=== PATIENT | male | born 1950 | race Caucasian/White ===

== ENCOUNTER 2017-08-14 07:21 | Day surgery (SDC) | END 2017-08-14 19:30 | disposition home or self-care (01) ==

== ENCOUNTER 2017-11-24 07:48 | Inpatient (IN) | END 2017-11-27 12:40 | disposition home or self-care (01) | DRG 871 ==

== ENCOUNTER 2018-07-08 11:34 | Observation (INO) | payer MEDICARE, OTHER ==
[~2018-07-08] VITALS: Ht 190.5 cm; Wt 105.4 kg
[~2018-07-08 11:34] MED LIST: ADV25050 INHALATION; ALLO100T PO; ASPI81TA52 PO; CARV12.579 PO; CLOP75TA27 PO; CRES5 PO; DIGO125T93 PO; ESOM40CA PO; EXEN2PEN SQ; INSU200I4 SQ; IVAB7.5T PO; LEVO500T48 PO; METF850T13 PO; NOVO3I SC; OMEG1CAP2 PO; PARO25TA13 PO; REPA2TAB8 PO; SACU1TAB PO; SPIR25TA PO
--- NOTE | 2018-07-08 15:15 | ERD ---
ER Documentation Chief Complaint Chief Complaint SOB with cough and congestion x 3 days HPI The patient is a 68-year-old male, presenting to the ER because of cough, congestion, dyspnea for the last 3 days with mild bilateral leg swelling. Denies fever, chills, neck pain, chest pain, abdominal pain, vomiting, dizzy, diarrhea. He smokes, denies drinking Past medical history: CAD, COPD, CHF, hypertension, cardiomyopathy, diabetes mellitus Past surgical history: Pacemaker, left carotid endarterectomy, pacemaker ROS All systems reviewed and are negative except as per history of present illness. Medications Home Meds Reported Medications Fluticasone Propionate* (Fluticasone Propionate* Nasal) 50 Mcg/[place] - 16 Gm [place].susp, 1 SPRAY NASAL DAILY, #1 BOTTLE TO EACH NOSTRIL 07/08/18 Furosemide* (Furosemide*) 40 Mg Tablet, 40 MG PO DAILY, TAB 07/08/18 Lorazepam* (Lorazepam*) 0.5 Mg Tablet, 0.5 MG PO BID PRN for ANXIETY, TAB 07/08/18 Insulin Detemir (Levemir) 100 Unit/1 Ml Vial, 0 SQ WITH MEALS INJECT 8-12 UNITS 07/08/18 Spironolactone* (Aldactone*) 25 Mg Tablet, 12.5 MG PO DAILY, #30 TAB 07/08/18 Sacubitril/Valsartan (Entresto 24 mg-26 mg Tablet) 1 Each Tablet, 1 EACH PO DAILY, TAB 07/08/18 Rosuvastatin Calcium* (Crestor*) 5 Mg Tablet, 5 MG PO QHS, #30 TAB 07/08/18 Repaglinide* (Repaglinide*) 2 Mg Tablet, 4 MG PO AC MEALS, TAB 07/08/18 Paroxetine Hcl* (Paxil* CR) 25 Mg Tab.sr.24h, 25 MG PO QHS, TAB 07/08/18 [place]-3 Acid Ethyl Esters (Lovaza) 1 Gm Capsule, 2 GM PO BID, CAP 07/08/18 Insulin Degludec (Tresiba Flextouch U-200) 200 Unit/1 Ml Insuln.pen, 26 UNIT SQ QHS 07/08/18 Esomeprazole Mag Trihydrate (Nexium) 40 Mg Capsule.dr, 40 MG PO QAM, #30 CAP 07/08/18 Digoxin* (Lanoxin*) 0.125 Mg Tablet, 0.125 MG PO QHS, TAB 07/08/18 Clopidogrel Bisulfate* (Clopidogrel Bisulfate*) 75 Mg Tablet, 75 MG PO DAILY, #30 TAB 07/08/18 Carvedilol* (Carvedilol*) 12.5 Mg Tablet, 12.5 MG PO BID, #60 TAB 07/08/18 Allopurinol* (Allopurinol*) 100 Mg Tablet, 100 MG PO DAILY, TAB 07/08/18 Discontinued Reported Medications Salmeterol Xinaf/Fluticasone* (Advair*) 250-50 Diskus Inhaler, 1 INH INHALATION BID, #1 INHALER 08/14/17 Esomeprazole Mag Trihydrate (Nexium) 40 Mg Capsule.dr, 40 MG PO DAILY, #30 CAP 08/14/17 Rosuvastatin Calcium* (Crestor*) 5 Mg Tablet, 5 MG PO QHS, #30 TAB 08/14/17 Ivabradine HCl (Corlanor) 7.5 Mg Tablet, 7.5 MG PO BID, #60 TAB 08/14/17 Paroxetine Hcl* (Paxil* CR) 25 Mg Tab.sr.24h, 25 MG PO DAILY, TAB 08/14/17 Carvedilol* (Carvedilol*) 12.5 Mg Tablet, 12.5 MG PO BID, #60 TAB 08/14/17 Spironolactone* (Aldactone*) 25 Mg Tablet, 25 MG PO DAILY, #30 TAB 08/14/17 Allopurinol* (Allopurinol*) 100 Mg Tablet, 100 MG PO DAILY, TAB 08/14/17 Sacubitril/Valsartan (Entresto 24 mg-26 mg Tablet) 1 Each Tablet, 1 EACH PO BID, TAB 08/14/17 Repaglinide* (Repaglinide*) 2 Mg Tablet, 4 MG PO AC MEALS, TAB THREE TIMES DAILY 08/14/17 Digoxin* (Lanoxin*) 0.125 Mg Tablet, 0.125 MG PO QHS, TAB 08/14/17 Metformin Hcl* (Metformin Hcl*) 850 Mg Tablet, 850 MG PO WITH MEALS, #30 TAB THREE TIMES A DAY 08/14/17 [place]-3 Acid Ethyl Esters (Lovaza) 1 Gm Capsule, 2 GM PO BID, CAP 08/14/17 Clopidogrel Bisulfate (Clopidogrel) 75 Mg Tablet, 75 MG PO DAILY, #30 TAB 08/14/17 Aspirin (Low Dose Aspirin) 81 Mg Tablet.dr, 81 MG PO DAILY, #30 TAB 08/14/17 Exenatide Microspheres (Bydureon Pen) 2 Mg/0.65 Ml Pen.injctr, 2 MG SQ Q7D, EACH Mondays08/14/17 Insulin Aspart* (Novolog Insulin Pen*) 100 Unit/Ml Soln, 12 UNIT SC AC MEALS, EA 08/14/17 Insulin Degludec (Tresiba Flextouch U-200) 200 Unit/1 Ml Insuln.pen, 24 UNIT SQ QHS 08/14/17 Discontinued Scripts Levofloxacin* (Levaquin*) 500 Mg Tablet, 500 MG PO DAILY for 5 Days, TAB Prov:SARINA LONG MD 11/27/17 Allergies Allergies: Coded Allergies: No Known Allergy (Unverified , 07/08/18) PMhx/Soc History of Surgery: Yes (CAROTID OCCLUSION, PACEMAKER) Anesthesia Reaction: No Hx Neurological Disorder: No Hx Respiratory Disorders: Yes (COPD) Hx Cardiac Disorders: Yes (CHF, HTN, CAROTID OCCLUSION) Hx Psychiatric Problems: No Hx Miscellaneous Medical Probl: Yes (CAD, HTN , DM , S/P CAROTID ENDA RTERECTOMY) Hx Alcohol Use: No Hx Substance Use: No Hx Tobacco Use: No Physical Exam Vitals Vital Signs Date Temp Pulse Resp B/P (MAP) Pulse Ox O2 O2 Flow FiO2 Time Delivery Rate 07/08/18 79 20 135/66 98 Nasal 2.0 17:00 (89) Cannula 07/08/18 99 26 96 21 15:56 07/08/18 Nasal 2 15:30 Cannula 07/08/18 Nasal 2.0 15:10 Cannula 07/08/18 99.0 81 20 126/61 95 12:11 (82) Physical Exam Const: No acute distress. Head: Atraumatic. Eyes: Normal Conjunctiva. ENT: Normal External Ears, Nose and Mouth. BL tympanic membrane and oropharynx are within normal limit, no facial tenderness Neck: Full range of motion. No meningismus. Resp: Bibasilar crackle. Cardio: Regular rate and rhythm. Abd: Soft, non distended, normal bowel sounds, non tender. Skin: No petechiae or rashes. Back: No midline or flank tenderness. Ext: No cyanosis, or edema. Neur: Awake and alert. No focal deficit Psych: Normal Mood and Affect. Result Diagram: 07/09/18 0708 07/09/18 0708 Results 24 hrs Laboratory Tests Test 07/08/18 15:15 07/08/18 15:22 07/08/18 15:35 White Blood Count 5.5 10^3/ul Red Blood Count 5.28 10^6/ul Hemoglobin 15.0 g/dl Hematocrit 45.1 % Mean Corpuscular Volume 85.4 fl Mean Corpuscular Hemoglobin 28.4 pg Mean Corpuscular 33.3 g/dl Hemoglobin Concent Red Cell Distribution Width 12.5 % Platelet Count 258 10^3/UL Mean Platelet Volume 10.3 fl Immature Granulocytes % 0.900 % Neutrophils % % Segmented Neutrophils % (Manual) 44 % Band Neutrophils % (Manual) 5 % Lymphocytes % % Lymphocytes % (Manual) 30 % Reactive Lymphocytes % (Manual) 11 % Monocytes % % Monocytes % (Manual) 10 % Eosinophils % % Basophils % % Nucleated Red Blood Cells % 0.0 /100WBC Immature Granulocytes # 0.050 10^3/ul Neutrophils # 10^3/ul Neutrophils # (Manual) 2.4 10^3/ul Band Neutrophils # 0.2 10^3/ul Lymphocytes (Manual) 1.6 10^3/ul Lymphocytes # 10^3/ul Reactive Lymphocytes # 0.6 10^3/ul Monocytes # 10^3/ul Monocytes # (Manual) 0.5 10^3/ul Eosinophils # 10^3/ul Basophils # 10^3/ul Nucleated Red Blood Cells # 10^3/ul Platelet Estimate NORMAL Poikilocytosis 1+ Anisocytosis 3+ Microcytosis 3+ Sodium Level 139 mmol/L Potassium Level 5.2 mmol/L Chloride Level 101 mmol/L Carbon Dioxide Level 27 mmol/L Anion Gap 11 Blood Urea Nitrogen 25 mg/dl Creatinine 1.10 mg/dl Est Glomerular Filtrat Rate mL/min > 60 mL/min Glucose Level 170 mg/dl Calcium Level 9.9 mg/dl Total Bilirubin 0.6 mg/dl Direct Bilirubin 0.00 mg/dl Indirect Bilirubin 0.6 mg/dl Aspartate Amino Transf (AST/SGOT) 34 IU/L Alanine 16 IU/L Aminotransferase (ALT/SGPT) Alkaline Phosphatase 47 IU/L Troponin I 0.014 ng/ml B-Type Natriuretic Peptide 2020 PG/ML Total Protein 8.2 g/dl Albumin 4.5 g/dl Globulin 3.70 g/dl Albumin/Globulin Ratio 1.21 POC Venous Lactate 1.5 mmol/L Prothrombin Time 12.4 Sec Prothrombin Time Ratio 1.0 INR International Normalized Ratio 0.91 Activated Partial Thromboplast 30.4 Sec Time Lactic Acid Level 1.6 mmol/L Current Medications Medications Dose Sig/[place] Start Time Status Last (Trade) Ordered Route PRN Stop Time Admin Dose Reason Admin Furosemide 20 mg ONCE ONCE 07/08/18 DC 07/08/18 (Lasix) IV 18:30 19:00 07/08/18 18:36 Procedures/[place] [id number] Radiology Main Line: [phone] DIAGNOSTIC IMAGING REPORT Patient: OSCAR GALAN : 1950 Age: 68 Sex: M MR #: [id number] DOS: 07/08/18 1501 Ordering MD: DIANNA KEEN MD Location: E/R Room/Bed: PROCEDURE: XR Chest. CLINICAL INDICATION: SOB TECHNIQUE: Portable AP view of the chest was obtained. COMPARISON: CR CHEST 05/06/2014; CR CHEST 04/29/2013; CR CHEST 11/26/2012 FINDINGS: Minimal bibasilar partial atelectasis. No pulmonary consolidation or edema. No effusion or pneumothorax. Cardiac silhouette is stable with intact pacer / AICD wires. No acute osseous abnormality. Calcified atherosclerosis of the thoracic aorta. IMPRESSION: Minimal bibasilar partial atelectasis. Calcified atherosclerosis of the thoracic aorta. RPTAT:AAJJ Physician Mario Date Time Electronically viewed and signed by Physician Mario on 07/08/2018 16:09 RF/ CC: DIANNA KEEN MD [id number] EKG: Read by emergency physician Rate/Rhythm: Normal Sinus Rhythm 78 beats/min QRS, ST, T-waves: No ST elevation, inferior lateral ST and T abnormality Impression: Abnormal EKG MEDICAL MAKING DECISION: The patient is a 68-year-old male, presenting with acute mild CHF exacerbation, acute viral syndrome. He was treated with Lasix 20 mg IV for acute CHF exacerbation with good response. The differential diagnoses considered include but are not limited to viral syndrome, influenza, bronchitis, asthma, COPD, pneumonia, pulmonary embolus, pleural effusion, congestive heart failure. Departure Diagnosis: Primary Impression: CHF (congestive heart failure) Additional Impressions: Viral syndrome Anemia Leukopenia Condition: Stable Comments I discussed the findings with the patient. I discussed the patient with physician Dr. Zepeda at 6:50 PM who was made aware of the lab, the treatment, the patient condition. The patient is admitted to [facility] Disclaimer: Inadvertent spelling and grammatical errors are likely due to EHR/dictation software use and do not reflect on the overall quality of patient care. Also, please note that the electronic time recorded on this note does not necessarily reflect the actual time of the patient encounter. DIANNA KEEN MD Jul 08, 2018 15:15
[2018-07-08] MEDS ORDERED: FUROSEMIDE 20 MG INJ IV ONE (18:30)
[2018-07-08] MEDS ORDERED: ALLO100T PO (18:54)
[2018-07-08] MEDS ORDERED: CARV12.579 PO (18:54)
[2018-07-08] MEDS ORDERED: CLOP75TA19 PO (18:54)
[2018-07-08] MEDS ORDERED: DIGO125T93 PO (18:55)
[2018-07-08] MEDS ORDERED: ESOM40CA PO (18:56)
[2018-07-08] MEDS ORDERED: INSU200I4 SQ (18:56)
[2018-07-08] MEDS ORDERED: OMEG1CAP2 PO (18:57)
[2018-07-08] MEDS ORDERED: PARO25TA13 PO (18:59)
[2018-07-08] MEDS ORDERED: CRES5 PO (19:00)
[2018-07-08] MEDS ORDERED: REPA2TAB8 PO (19:00)
[2018-07-08] MEDS ORDERED: SACU1TAB PO (19:01)
[2018-07-08] MEDS ORDERED: SPIR25TA PO (19:02)
[2018-07-08] MEDS ORDERED: LEVEM SQ (19:06)
[2018-07-08] MEDS ORDERED: LORA0.5T PO (19:07)
[2018-07-08] MEDS ORDERED: FURO40TA4 PO (19:07)
[2018-07-08] MEDS ORDERED: FLUT16SP17 NASAL (19:08)
[2018-07-08] MEDS: ACCU-CHEK XX SCH (21:00)
[2018-07-08 22:35] VITALS: PULSE 88
[2018-07-08] MEDS: ATORVASTATIN 20 MG TAB PO SCH (23:40)
[2018-07-08] MEDS: FISH OIL 1,000 MG CAP PO SCH (23:43)
[2018-07-09] VITALS (11 sets, daily range): BP systolic 114–139; BP diastolic 55–63; PULSE 70–91; RESP 18–19; Ht 190.5 cm; Wt 105.4 kg
[2018-07-09] MEDS ORDERED: ZOLPIDEM 5 MG TAB PO PRN
[2018-07-09] MEDS: PANTOPRAZOLE (EC) 40 MG TAB PO SCH (06:09)
[2018-07-09] MEDS: ACCU-CHEK XX SCH (07:53)
[2018-07-09] MEDS: CLOPIDOGREL 75 MG TAB PO SCH (09:08)
[2018-07-09] MEDS: FISH OIL 1,000 MG CAP PO SCH ×2 (09:08→21:06)
[2018-07-09] MEDS: FUROSEMIDE 40 MG TAB PO SCH (09:09)
[2018-07-09] MEDS: ALLOPURINOL 100 MG TAB PO SCH (09:09)
--- NOTE | 2018-07-09 09:21 | HP ---
DATE OF ADMISSION: 07/08/2018 CHIEF COMPLAINT: Shortness of breath. HISTORY OF PRESENT ILLNESS: This is a 68-year-old male with a past medical history of coronary arter y disease, history of hypertension, diabetes, history of arrhythmia, history of GERD, history of dysl ipidemia, history of carotid endarterectomy, who presents to [facility] for shortne ss of breath. The patient states over the past several days he has had increased congestion, runny n ose, cough. As a result, the patient came into the emergency room for evaluation. Upon arrival, juliane jasso had laboratory data that showed a white count of 4.7. The patient had chest x-ray which showed findings of basilar atelectasis. In the emergency room, the patient was given IV diuretic therapy an d admitted to telemetry for evaluation. Upon my evaluation of the patient at this time, he is currently complaining of congestion. The patie nt overall feels ill. Denies any hemoptysis, hematemesis or hematochezia. PAST MEDICAL HISTORY: History of hypertension, dyslipidemia, diabetes, CHF, arrhythmia, history of c oronary artery disease, history of peripheral vascular disease. PAST SURGICAL HISTORY: Status post AICD placement, status post carotid endarterectomy. FAMILY HISTORY: No family history of kidney disease. SOCIAL HISTORY: Does not drink, smoke or do drugs. MEDICATIONS: The patient's medications have been reviewed. ALLERGIES: NO KNOWN DRUG ALLERGIES. REVIEW OF SYSTEMS: A 14-point review of systems was conducted and pertinent positives stated in HPI, otherwise negative. PHYSICAL EXAMINATION: VITAL SIGNS: Blood pressure is 130/60, respirations 16, pulse 92, temperature 98.6. HEENT: Head is normocephalic. Pupils are equal and reactive to light. NECK: Supple. HEART: Regular rate. LUNGS: Show diminished breath sounds at the base. ABDOMEN: Soft, nontender to palpation without rebound or guarding. EXTREMITIES: Negative for clubbing, cyanosis, no edema. DERMATOLOGIC: No rashes. MUSCULOSKELETAL: No joint effusion. NEUROLOGIC: No focal deficits. MEDICATIONS: The patient's medications have been reviewed. LABORATORY DATA: Shows sodium 140, potassium 4.2, BUN 25, creatinine 0.98, glucose 238, magnesium 1. 2. White count 4.7, hemoglobin 10.8, platelet count is 153. IMAGING STUDIES: Reviewed. ASSESSMENT AND PLAN: 1. Upper respiratory infection, possible acute bronchitis. Plan is to start the patient on antibiot ic therapy, azithromycin. We will place an ID consult for evaluation. 2. Acute hypoxemic respiratory failure, etiology is multifactorial secondary to bronchitis, possible congestive heart failure exacerbation. We will continue patient supplemental oxygen, continue diure tic therapy. Continue antibiotic therapy, monitor closely. 3. Acute on chronic systolic, diastolic heart failure. The patient appears decompensated on exam. Continue diuretic therapy. Followup with Cardiology. 4. History of coronary artery disease, status post PCI. Continue medical management. 5. Diabetes. The patient's glucose levels are elevated. We will resume diabetic regimen and monito r closely. 6. Hypertension. Continue current blood pressure regimen. 7. Dyslipidemia. Continue statin therapy. 8. History of ischemic cardiomyopathy, status post ICD placement. Continue to monitor. 9. History of carotid endarterectomy. Please note I spent over 30 minutes of face to face time with this patient, discussing code status an d advance directives. The patient is FULL CODE. Dictated By: ADAMARIS MONTES DE OCA/SHAI Conf#: [id number] DID#: [id number]
[2018-07-09] MEDS ORDERED: ALBUTEROL/IPRATROPIUM (NEB) 3 ML AMP HHN PRN (09:30)
[2018-07-09] MEDS ORDERED: GLUCAGON 1 MG INJ IM PRN (09:30)
[2018-07-09] MEDS ORDERED: GLUCOSE GEL 15 GRAM TUBE PO PRN ×2 (09:30)
[2018-07-09] MEDS ORDERED: MAGNESIUM SULFATE 2 GM/50 ML 50 ML IVPB SCH (09:30)
[2018-07-09] MEDS ORDERED: DEXTROSE 50% 50 ML SYRINGE IV PRN ×2 (09:30)
[2018-07-09] MEDS ORDERED: GLUCOSE GEL 15 GRAM TUBE BUCCAL PRN (09:30)
[2018-07-09] MEDS ORDERED: ENOXAPARIN 40 MG/0.4 ML SYG SC SCH (10:00)
[2018-07-09] MEDS ORDERED: AZITHROMYCIN 500MG/NS (PMX) 250 ML IVPB SCH (10:30)
[2018-07-09] MEDS ORDERED: MAGNESIUM SULFATE 4 GM/100 ML 100 ML IVPB ONE (10:30)
[2018-07-09] MEDS: FLUTICASONE 0.05% 16 GM NAS SPRAY NASAL SCH (10:39)
[2018-07-09] MEDS: INSULIN ASPART [NOVOLOG] 3 ML PEN SC SCH ×3 (12:00→21:23)
[2018-07-09] MEDS ORDERED: MAG SULFATE 2GM IN 50 ML IVPB ONE (12:00)
[2018-07-09] MEDS: INSULIN GLARGINE [LANTus] (100 UNITS/ML) SYG SC SCH (12:00)
--- NOTE | 2018-07-09 12:46 | CONS ---
Assessment/Plan Assessment/Plan Hospital Course (Demo Recall) 1. Dyspnea: Clinically does not appear to be in CHF exacerbation. Possibly COPD exacerbation versus viral syndrome versus others 2. Congestive heart failure: Chronic and stable second systolic heart failure 3. Coronary arteries with history of PCI 4. Diabetes 5. Dyslipidemia 6. Hypertension 7. COPD 8. Peripheral vascular disease status post carotid endarterectomy Recommendations Antibiotic management as needed will be deferred to internal medicine team Will resume patient home cardiac medications Electrolytes including: Magnesium will be replaced Monitor on telemetry for the time being Thank you for his referral 5 continue to follow along with you PEGGY TOTH MD [facility] Consultation Date/Type/Reason Admit Date/Time Jul 08, 2018 at 18:48 Date of Consultation: Jul 09, 2018 Type of Consult Cardiology Reason for Consultation R/O CHF Requesting Provider: ADAMARIS MEYER DO Date/Time of Note DATE: 07/09/18 TIME: 12:41 Hx of Present Illness Interventional cardiology consultation note Chief complaint: Shortness of breath flulike symptoms Reason for consult: Rule out CHF History of present illness: Thank you for this referral. History was from the patient is a good historian from extensive review of the old chart patient also very well-known to me from the past few years This is a pleasant 68-year-old gentleman multiple complicated medical history who has not been feeling well over the past couple of days. Patient started with a runny nose runny eyes. Started having shortness of breath and some cough with no fever or chills. Because of his multiple [facility] medical surgical floor he came to emergency room is been admitted for possible CHF as well as URI symptoms PAST MEDICAL HISTORY: History of hypertension, dyslipidemia, diabetes, CHF, arrhythmia, history of coronary artery disease post IA and PCI, history of peripheral vascular disease. History of severe ischemic cardiomyopathy ejection fraction of less than 30-35% status post ICD. COPD PAST SURGICAL HISTORY: Status post AICD placement, status post carotid endarterectomy. History of PCI FAMILY HISTORY: No family history of early coronary artery disease SOCIAL HISTORY: Has quit smoking a few years ago MEDICATIONS: The patient's medications have been reviewed. ALLERGIES: NO KNOWN DRUG ALLERGIES. Review of system: Patient denies all others except for above-mentioned Past Medical History Home Meds Reported Medications Fluticasone Propionate* (Fluticasone Propionate* Nasal) 50 Mcg/[place] - 16 Gm [place].susp, 1 SPRAY NASAL DAILY, #1 BOTTLE TO EACH NOSTRIL 07/08/18 Furosemide* (Furosemide*) 40 Mg Tablet, 40 MG PO DAILY, TAB 07/08/18 Lorazepam* (Lorazepam*) 0.5 Mg Tablet, 0.5 MG PO BID PRN for ANXIETY, TAB 07/08/18 Insulin Detemir (Levemir) 100 Unit/1 Ml Vial, 0 SQ WITH MEALS INJECT 8-12 UNITS 07/08/18 Spironolactone* (Aldactone*) 25 Mg Tablet, 12.5 MG PO DAILY, #30 TAB 07/08/18 Sacubitril/Valsartan (Entresto 24 mg-26 mg Tablet) 1 Each Tablet, 1 EACH PO DAILY, TAB 07/08/18 Rosuvastatin Calcium* (Crestor*) 5 Mg Tablet, 5 MG PO QHS, #30 TAB 07/08/18 Repaglinide* (Repaglinide*) 2 Mg Tablet, 4 MG PO AC MEALS, TAB 07/08/18 Paroxetine Hcl* (Paxil* CR) 25 Mg Tab.sr.24h, 25 MG PO QHS, TAB 07/08/18 [place]-3 Acid Ethyl Esters (Lovaza) 1 Gm Capsule, 2 GM PO BID, CAP 07/08/18 Insulin Degludec (Tresiba Flextouch U-200) 200 Unit/1 Ml Insuln.pen, 26 UNIT SQ QHS 07/08/18 Esomeprazole Mag Trihydrate (Nexium) 40 Mg Capsule.dr, 40 MG PO QAM, #30 CAP 07/08/18 Digoxin* (Lanoxin*) 0.125 Mg Tablet, 0.125 MG PO QHS, TAB 07/08/18 Clopidogrel Bisulfate* (Clopidogrel Bisulfate*) 75 Mg Tablet, 75 MG PO DAILY, #30 TAB 07/08/18 Carvedilol* (Carvedilol*) 12.5 Mg Tablet, 12.5 MG PO BID, #60 TAB 07/08/18 Allopurinol* (Allopurinol*) 100 Mg Tablet, 100 MG PO DAILY, TAB 07/08/18 Discontinued Reported Medications Salmeterol Xinaf/Fluticasone* (Advair*) 250-50 Diskus Inhaler, 1 INH INHALATION BID, #1 INHALER 08/14/17 Esomeprazole Mag Trihydrate (Nexium) 40 Mg Capsule.dr, 40 MG PO DAILY, #30 CAP 08/14/17 Rosuvastatin Calcium* (Crestor*) 5 Mg Tablet, 5 MG PO QHS, #30 TAB 08/14/17 Ivabradine HCl (Corlanor) 7.5 Mg Tablet, 7.5 MG PO BID, #60 TAB 08/14/17 Paroxetine Hcl* (Paxil* CR) 25 Mg Tab.sr.24h, 25 MG PO DAILY, TAB 08/14/17 Carvedilol* (Carvedilol*) 12.5 Mg Tablet, 12.5 MG PO BID, #60 TAB 08/14/17 Spironolactone* (Aldactone*) 25 Mg Tablet, 25 MG PO DAILY, #30 TAB 08/14/17 Allopurinol* (Allopurinol*) 100 Mg Tablet, 100 MG PO DAILY, TAB 08/14/17 Sacubitril/Valsartan (Entresto 24 mg-26 mg Tablet) 1 Each Tablet, 1 EACH PO BID, TAB 08/14/17 Repaglinide* (Repaglinide*) 2 Mg Tablet, 4 MG PO AC MEALS, TAB THREE TIMES DAILY 08/14/17 Digoxin* (Lanoxin*) 0.125 Mg Tablet, 0.125 MG PO QHS, TAB 08/14/17 Metformin Hcl* (Metformin Hcl*) 850 Mg Tablet, 850 MG PO WITH MEALS, #30 TAB THREE TIMES A DAY 08/14/17 [place]-3 Acid Ethyl Esters (Lovaza) 1 Gm Capsule, 2 GM PO BID, CAP 08/14/17 Clopidogrel Bisulfate (Clopidogrel) 75 Mg Tablet, 75 MG PO DAILY, #30 TAB 08/14/17 Aspirin (Low Dose Aspirin) 81 Mg Tablet.dr, 81 MG PO DAILY, #30 TAB 08/14/17 Exenatide Microspheres (Bydureon Pen) 2 Mg/0.65 Ml Pen.injctr, 2 MG SQ Q7D, EACH Mondays08/14/17 Insulin Aspart* (Novolog Insulin Pen*) 100 Unit/Ml Soln, 12 UNIT SC AC MEALS, EA 08/14/17 Insulin Degludec (Tresiba Flextouch U-200) 200 Unit/1 Ml Insuln.pen, 24 UNIT SQ QHS 08/14/17 Discontinued Scripts Levofloxacin* (Levaquin*) 500 Mg Tablet, 500 MG PO DAILY for 5 Days, TAB Prov:SARINA LONG MD 11/27/17 Medications Current Medications Allopurinol (Zyloprim) 100 mg DAILY PO Last administered on 07/09/18 09:09; Admin Dose 100 MG; Start 07/09/18 at 09:00 Carvedilol (Coreg) 12.5 mg BID PO Last administered on 07/09/18 09:09; Admin Dose 12.5 MG; Start 07/08/18 at 21:00 Clopidogrel Bisulfate (plaVIX) 75 mg DAILY PO Last administered on 07/09/18 09:08; Admin Dose 75 MG; Start 07/09/18 at 09:00 Digoxin (Digoxin) 0.125 mg DAILY@1300 PO Last administered on 07/09/18 12:38; Admin Dose 0.125 MG; Start 07/09/18 at 13:00 Fluticasone Propionate (Flonase 0.05% Nasal) 1 spray DAILY NASAL Last administered on 07/09/18 10:39; Admin Dose 1 SPRAY; Start 07/09/18 at 09:00 Furosemide (Lasix) 40 mg DAILY PO Last administered on 07/09/18 09:09; Admin Dose 40 MG; Start 07/09/18 at 09:00 Pantoprazole (Protonix Tab) 40 mg DAILY@06 PO Last administered on 07/09/18 06:09; Admin Dose 40 MG; Start 07/09/18 at 06:00 Fish Oil (Fish Oil) 1,000 mg BID PO Last administered on 07/09/18 09:08; Admin Dose 1,000 MG; Start 07/08/18 at 22:30 Atorvastatin Calcium (Lipitor) 20 mg DAILY@21 PO Last administered on 07/08/18 23:40; Admin Dose 20 MG; Start 07/08/18 at 21:00 Zolpidem Tartrate (Ambien) 5 mg HS PRN PO INSOMNIA Last administered on 07/09/18 00:13; Admin Dose 5 MG; Start 07/09/18 at 00:00 Azithromycin 250 ml @ 250 mls/hr Q24H IVPB Last administered on 07/09/18 10:38; Admin Dose 250 MLS/HR; Start 07/09/18 at 10:30 Insulin Aspart (Novolog Insulin Pen) NOVOLOG *MODERATE* ALGORITHM WITH MEALS BEDTIME SC Last administered on 07/09/18at 12:00; Admin Dose 8 UNIT; Start 07/09/18 at 11:50 Insulin Glargine (Lantus) 16 units DAILY@0800 SC Last administered on 07/09/18at 12:00; Admin Dose 16 UNITS; Start 07/09/18 at 10:30 Albuterol/ Ipratropium (Duoneb) 3 ml Q4H RESP THERAPY PRN HHN SHORTNESS OF BREATH; Start 07/09/18 at 09:30 Enoxaparin Sodium (Lovenox) 40 mg DAILY SC ; Start 07/09/18 at 10:00 Magnesium Sulfate 50 ml @ 25 mls/hr ONCE IVPB Last administered on 07/09/18at 10:39; Admin Dose 25 MLS/HR; Start 07/09/18 at 09:30; Stop 07/09/18 at 13:00 Miscellaneous Information 1 ea NOTE XX ; Start 07/09/18 at 09:30 Glucose (Glutose) 15 gm Q15M PRN PO DECREASED GLUCOSE; Start 07/09/18 at 09:30 Glucose (Glutose) 22.5 gm Q15M PRN PO DECREASED GLUCOSE; Start 07/09/18 at 09:30 Dextrose (D50w Syringe) 25 ml Q15M PRN IV DECREASED GLUCOSE; Start 07/09/18 at 09:30 Dextrose (D50w Syringe) 50 ml Q15M PRN IV DECREASED GLUCOSE; Start 07/09/18 at 09:30 Glucagon (Glucagen) 1 mg Q15M PRN IM DECREASED GLUCOSE; Start 07/09/18 at 09:30 Glucose (Glutose) 15 gm Q15M PRN BUCCAL DECREASED GLUCOSE; Start 07/09/18 at 09:30 Magnesium Sulfate 50 ml @ 25 mls/hr ONCE ONCE IVPB ; Start 07/09/18 at 12:00; Stop 07/09/18 at 13:59 Diagnostic Test (Pha) (Accu-Chek) 1 ea 02 XX ; Start 07/10/18 at 02:00 Nystatin (Nystatin Susp) 5 ml QID PO ; Start 07/09/18 at 13:00; Status UNV Chlorhexidine Gluconate (Peridex) 15 ml Q12 MT ; Start 07/09/18 at 21:00; Status UNV Fluconazole (Diflucan) 100 mg DAILY PO ; Start 07/09/18 at 13:00; Status UNV Allergies: Coded Allergies: No Known Allergy (Unverified , 07/08/18) Past Surgical History Past Surgical Hx: other Social History Smoking Status: Never smoker Exam/Review of Systems Vital Signs Vitals Vital Signs Date Temp Pulse Resp B/P (MAP) Pulse Ox O2 O2 Flow FiO2 Time Delivery Rate 07/09/18 80 12:08 07/09/18 98.5 18 125/56 94 11:33 (79) 07/09/18 Nasal 04:33 Cannula 07/09/18 2.0 00:00 07/08/18 21 15:56 Intake and Output 07/08/18 07/08/18 07/09/18 1515:00 23:00 07:00 IntakeIntake Total 500 ml BalanceBalance 500 ml Exam Exam General: no acute distress HEENT: NC/AT. pupils are equal. round. NECK: NO JVD. no stridor. CV: RRR. systolic murmur; no gallop or rubs. PULM: no wheezing or rhonchi. GI: SOFT, NT, ND, no rebound or guarding Extremity: trace B/L LE edema. no clubbing. neuro: awake and alert, OX3. Psych: calm and pleasant rectal: deferred : normal EKG was personally reviewed showed normal sinus rhythm nonspecific abnormalities X-ray was reviewed which shows: Minimal bibasilar partial atelectasis. No pulmonary consolidation or edema. No effusion or pneumothorax. Cardiac silhouette is stable with intact pacer / AICD wires. No acute osseous abnormality. Calcified atherosclerosis of the thoracic aorta. Labs Result Diagram: 07/09/18 0708 07/09/18 0708 Results 24hrs Laboratory Tests Test 07/08/18 15:15 07/08/18 15:22 07/08/18 15:35 07/08/18 21:50 White Blood Count 5.5 # Red Blood Count 5.28 # Hemoglobin 15.0 # Hematocrit 45.1 # Mean Corpuscular 85.4 Volume Mean Corpuscular 28.4 L Hemoglobin Mean Corpuscular 33.3 Hemoglobin Concent Red Cell 12.5 Distribution Width Platelet Count 258 # Mean Platelet Volume 10.3 Immature 0.900 H Granulocytes % Neutrophils % Segmented 44 Neutrophils % (Manual) Band Neutrophils % 5 H (Manual) Lymphocytes % Lymphocytes % 30 (Manual) Reactive Lymphocytes 11 H % (Manual) Monocytes % Monocytes % (Manual) 10 Eosinophils % Basophils % Nucleated Red Blood 0.0 Cells % Immature 0.050 H Granulocytes # Neutrophils # Neutrophils # 2.4 (Manual) Band Neutrophils # 0.2 Lymphocytes (Manual) 1.6 Lymphocytes # Reactive Lymphocytes 0.6 H # Monocytes # Monocytes # (Manual) 0.5 Eosinophils # Basophils # Nucleated Red Blood Cells # Platelet Estimate NORMAL Poikilocytosis 1+ Anisocytosis 3+ Microcytosis 3+ Sodium Level 139 Potassium Level 5.2 H Chloride Level 101 Carbon Dioxide Level 27 Anion Gap 11 Blood Urea Nitrogen 25 H Creatinine 1.10 Est Glomerular > 60 Filtrat Rate mL/min Glucose Level 170 Calcium Level 9.9 Total Bilirubin 0.6 Direct Bilirubin 0.00 Indirect Bilirubin 0.6 Aspartate Amino 34 Transf (AST/SGOT) Alanine 16 Aminotransferase (AL T/SGPT) Alkaline Phosphatase 47 Troponin I 0.014 B-Type Natriuretic 2020 H Peptide Total Protein 8.2 H Albumin 4.5 Globulin 3.70 H Albumin/Globulin 1.21 Ratio POC Venous Lactate 1.5 Prothrombin Time 12.4 Prothrombin Time 1.0 Ratio INR International 0.91 Normalized Ratio Activated 30.4 Partial Thromboplast Time Lactic Acid Level 1.6 Bedside Glucose 306 H Test 07/08/18 23:39 07/09/18 00:15 07/09/18 03:10 07/09/18 07:08 Bedside Glucose 203 238 H Urine Color YELLOW Urine Clarity CLEAR Urine pH 5.0 Urine Specific 1.014 [place] Urine Ketones NEGATIVE Urine Nitrite NEGATIVE Urine Bilirubin NEGATIVE Urine Urobilinogen NEGATIVE Urine Leukocyte NEGATIVE Esterase Urine Microscopic 2 RBC Urine Microscopic 0 WBC Urine Hemoglobin 2+ H Urine Random 113.25 Creatinine Urine Random Sodium 112 H Urine Glucose 1+ H Urine Total Protein 16.0 H White Blood Count 4.7 L Red Blood Count 4.59 L Hemoglobin 12.8 L Hematocrit 39.4 L Mean Corpuscular 85.8 Volume Mean Corpuscular 27.9 L Hemoglobin Mean Corpuscular 32.5 Hemoglobin Concent Red Cell 12.8 Distribution Width Platelet Count 153 # Mean Platelet Volume 10.2 Immature 0.600 H Granulocytes % Neutrophils % 51.1 Lymphocytes % 35.5 Monocytes % 10.9 Eosinophils % 1.7 Basophils % 0.2 Nucleated Red Blood 0.0 Cells % Immature 0.030 Granulocytes # Neutrophils # 2.4 Lymphocytes # 1.7 Monocytes # 0.5 Eosinophils # 0.1 Basophils # 0.0 Nucleated Red Blood 0.0 Cells # Sodium Level 140 Potassium Level 4.2 Chloride Level 100 Carbon Dioxide Level 27 Anion Gap 13 Blood Urea Nitrogen 25 H Creatinine 0.98 Est Glomerular > 60 Filtrat Rate mL/min Glucose Level 238 H Calcium Level 9.2 Phosphorus Level 4.6 Magnesium Level 1.2 L Test 07/09/18 07:52 07/09/18 11:19 Bedside Glucose 233 H 271 H Medications Medications Current Medications Allopurinol (Zyloprim) 100 mg DAILY PO Last administered on 07/09/18 09:09; Admin Dose 100 MG; Start 07/09/18 at 09:00 Carvedilol (Coreg) 12.5 mg BID PO Last administered on 07/09/18 09:09; Admin Dose 12.5 MG; Start 07/08/18 at 21:00 Clopidogrel Bisulfate (plaVIX) 75 mg DAILY PO Last administered on 07/09/18 09:08; Admin Dose 75 MG; Start 07/09/18 at 09:00 Digoxin (Digoxin) 0.125 mg DAILY@1300 PO Last administered on 07/09/18 12:38; Admin Dose 0.125 MG; Start 07/09/18 at 13:00 Fluticasone Propionate (Flonase 0.05% Nasal) 1 spray DAILY NASAL Last administe red on 07/09/18 10:39; Admin Dose 1 SPRAY; Start 07/09/18 at 09:00 Furosemide (Lasix) 40 mg DAILY PO Last administered on 07/09/18 09:09; Admin Dose 40 MG; Start 07/09/18 at 09:00 Pantoprazole (Protonix Tab) 40 mg DAILY@06 PO Last administered on 07/09/18 06:09; Admin Dose 40 MG; Start 07/09/18 at 06:00 Fish Oil (Fish Oil) 1,000 mg BID PO Last administered on 07/09/18 09:08; Admin Dose 1,000 MG; Start 07/08/18 at 22:30 Atorvastatin Calcium (Lipitor) 20 mg DAILY@21 PO Last administered on 07/08/18 23:40; Admin Dose 20 MG; Start 07/08/18 at 21:00 Zolpidem Tartrate (Ambien) 5 mg HS PRN PO INSOMNIA Last administered on 07/09/18 00:13; Admin Dose 5 MG; Start 07/09/18 at 00:00 Azithromycin 250 ml @ 250 mls/hr Q24H IVPB Last administered on 07/09/18at 10:38; Admin Dose 250 MLS/HR; Start 07/09/18 at 10:30 Insulin Aspart (Novolog Insulin Pen) NOVOLOG *MODERATE* ALGORITHM WITH MEALS B EDTIME SC Last administered on 07/09/18 12:00; Admin Dose 8 UNIT; Start 07/09/18 at 11:50 Insulin Glargine (Lantus) 16 units DAILY@0800 SC Last administered on 07/09/18 12:00; Admin Dose 16 UNITS; Start 07/09/18 at 10:30 Albuterol/ Ipratropium (Duoneb) 3 ml Q4H RESP THERAPY PRN HHN SHORTNESS OF BREATH; Start 07/09/18 at 09:30 Enoxaparin Sodium (Lovenox) 40 mg DAILY SC ; Start 07/09/18 at 10:00 Magnesium Sulfate 50 ml @ 25 mls/hr ONCE IVPB Last administered on 07/09/18 10:39; Admin Dose 25 MLS/HR; Start 07/09/18 at 09:30; Stop 07/09/18 at 13:00 Miscellaneous Information 1 ea NOTE XX ; Start 07/09/18 at 09:30 Glucose (Glutose) 15 gm Q15M PRN PO DECREASED GLUCOSE; Start 07/09/18 at 09:30 Glucose (Glutose) 22.5 gm Q15M PRN PO DECREASED GLUCOSE; Start 07/09/18 at 09:30 Dextrose (D50w Syringe) 25 ml Q15M PRN IV DECREASED GLUCOSE; Start 07/09/18 at 09:30 Dextrose (D50w Syringe) 50 ml Q15M PRN IV DECREASED GLUCOSE; Start 07/09/18 at 09:30 Glucagon (Glucagen) 1 mg Q15M PRN IM DECREASED GLUCOSE; Start 07/09/18 at 09:30 Glucose (Glutose) 15 gm Q15M PRN BUCCAL DECREASED GLUCOSE; Start 07/09/18 at 09:30 Magnesium Sulfate 50 ml @ 25 mls/hr ONCE ONCE IVPB ; Start 07/09/18 at 12:00; Stop 07/09/18 at 13:59 Diagnostic Test (Pha) (Accu-Chek) 1 ea 02 XX ; Start 07/10/18 at 02:00 Nystatin (Nystatin Susp) 5 ml QID PO ; Start 07/09/18 at 13:00; Status UNV Chlorhexidine Gluconate (Peridex) 15 ml Q12 MT ; Start 07/09/18 at 21:00; Status UNV Fluconazole (Diflucan) 100 mg DAILY PO ; Start 07/09/18 at 13:00; Status UNV PEGGY TOTH MD Jul 09, 2018 12:46
[2018-07-09] MEDS ORDERED: DIGOXIN 0.125 MG TAB PO SCH (13:00)
--- NOTE | 2018-07-09 14:14 | CONS ---
DATE OF ADMISSION: 07/08/2018 DATE OF CONSULTATION: 07/09/2018 TYPE OF CONSULTATION: Infectious disease. REQUESTING PHYSICIAN: Adamaris Meyer DO Thank you Dr. Meyer for this consultation. HISTORY OF PRESENT ILLNESS: This is a well-developed, obese 68-year-old man with numerous medical problems who was admitted with shortness of breath, cough, congestion, runny nose that was going on for several days. The patient has a history of coronary artery disease, hypertension, diabetes, arrhythmia, GERD, dyslipidemia, carotid endarterectomy, history of AICD placement as well. VITAL SIGNS: On admission revealed a temperature of 99, pulse 81, respirations 20, blood pressure 126/61, saturation 96% on room air. LABORATORY DATA: WBC 5.5, H and H 15 and 45.1, platelets 258. BUN 25, creatinine 1.10. BNP was 2020. MICROBIOLOGY: Urinalysis was negative for nitrite, leukocyte esterase. DIAGNOSTICS: Chest x-ray revealed minimal bibasilar partial atelectasis. ANTIMICROBIALS: The patient was started on Zithromax. ALLERGIES: HE IS NOT ALLERGIC TO ANY ANTIBIOTICS. PAST MEDICAL HISTORY: As per history of present illness. SOCIAL HISTORY: The patient came from home. He smokes cigars daily. He quit smoking cigarettes approximately 20 years ago. Drinks socially. Denies recent travel. No obvious sick contacts. REVIEW OF SYSTEMS: As per history of present illness. The patient also complains of bad taste in the mouth and white coating in the mouth that when he arouses that is difficult to take off. PHYSICAL EXAMINATION: GENERAL: This is a well-developed, obese, very pleasant elderly man who is awake, alert, in no distress. HEENT: Head is atraumatic, normocephalic. Sclerae are anicteric. Buccal mucosa is pink, pale. The patient has white thrush on his tongue. NECK: Supple. CHEST: Rise symmetrical. Breath sounds are clear. The patient has scattered inspiratory wheeze on the right lung base. HEART: S1, S2. ABDOMEN: Soft. Bowel tones are present. EXTREMITIES: Without cyanosis. DIAGNOSTIC IMPRESSION: A 68-year-old man with numerous medical problems admitted with community-acquired bronchitis. The patient also has oral candidiasis, possible congestive heart failure exacerbation with hypoxemia. He is on appropriate antibiotic therapy. He is also on Lasix. We will add fluconazole, oral nystatin and Peridex mouthwash to the regimen. Follow on chest x-ray and cardiology recommendations. Discussed with Dr. Solano. Dictated By: EDSON PEREZ [employer] for [employer] N[employer]/SHAI Conf#: [id number] DID#: [id number] CC: ADAMARIS MEYER DO;*EndCC* MTDD
[2018-07-09] MEDS: NYSTATIN SUSP 5 ML CUP PO SCH ×3 (14:25→21:07)
[2018-07-09] MEDS: FLUCONAZOLE 100 MG TAB PO SCH (14:25)
[2018-07-09] MEDS: ENOXAPARIN 40 MG/0.4 ML SYG SC SCH (14:31)
[2018-07-09] MEDS: IVABRADINE HCL 5 MG TABLET PO SCH (17:32)
[2018-07-09] MEDS: ATORVASTATIN 20 MG TAB PO SCH (21:06)
[2018-07-09] MEDS: CHLORHEXIDINE GLUCONATE 15 ML UD CUP MT SCH (21:06)
[2018-07-10] VITALS (7 sets, daily range): BP systolic 123–135; BP diastolic 60–69; PULSE 66–79; RESP 18
[2018-07-10] MEDS ORDERED: ACCU-CHEK XX SCH (02:00)
[2018-07-10] MEDS: PANTOPRAZOLE (EC) 40 MG TAB PO SCH (06:21)
[2018-07-10] MEDS: IVABRADINE HCL 5 MG TABLET PO SCH (07:50)
[2018-07-10] MEDS: INSULIN GLARGINE [LANTus] (100 UNITS/ML) SYG SC SCH (07:54)
[2018-07-10] MEDS: INSULIN ASPART [NOVOLOG] 3 ML PEN SC SCH ×2 (07:54→11:49)
[2018-07-10] MEDS: ALLOPURINOL 100 MG TAB PO SCH (08:19)
[2018-07-10] MEDS: CLOPIDOGREL 75 MG TAB PO SCH (08:19)
[2018-07-10] MEDS: NYSTATIN SUSP 5 ML CUP PO SCH (08:19)
[2018-07-10] MEDS: CHLORHEXIDINE GLUCONATE 15 ML UD CUP MT SCH (08:19)
[2018-07-10] MEDS: FUROSEMIDE 40 MG TAB PO SCH (08:20)
[2018-07-10] MEDS: FLUCONAZOLE 100 MG TAB PO SCH (08:20)
[2018-07-10] MEDS: FISH OIL 1,000 MG CAP PO SCH (08:20)
[2018-07-10] MEDS: FLUTICASONE 0.05% 16 GM NAS SPRAY NASAL SCH (08:21)
[2018-07-10] MEDS: ENOXAPARIN 40 MG/0.4 ML SYG SC SCH (08:27)
[2018-07-10] MEDS ORDERED: MAGNESIUM SULFATE 2 GM/50 ML 50 ML IVPB ONE (08:30)
--- NOTE | 2018-07-10 08:40 | CONS ---
Consult Date/Type/Reason Admit Date/Time Jul 08, 2018 at 18:48 Initial Consult Date 07/09/18 Requesting Provider: ADAMARIS MEYER DO Date/Time of Note DATE: 07/10/18 TIME: 08:33 Subjective Interventional cardiology follow-up progress none Subjective: Case discussed with the staff telemetry was reviewed patient remained with occasional PVCs. No chest pain or pressure no palpitation. Breathing is improving He still has nasal congestion though Objective: General: no acute distress HEENT: NC/AT. pupils are equal. round. NECK: NO JVD. no stridor. CV: RRR. systolic murmur; no gallop or rubs. PULM: no wheezing or rhonchi. GI: SOFT, NT, ND, no rebound or guarding Extremity: trace B/L LE edema. no clubbing. neuro: awake and alert, OX3. Psych: calm and pleasant rectal: deferred : normal Objective Vitals Vital Signs Date Temp Pulse Resp B/P (MAP) Pulse Ox O2 O2 Flow FiO2 Time Delivery Rate 07/10/18 66 08:19 07/10/18 98.0 18 123/61 94 Room Air 07:30 (81) 07/10/18 2.0 03:23 07/08/18 21 15:56 Intake and Output 07/09/18 07/09/18 07/10/18 1515:00 23:00 07:00 IntakeIntake Total 1200 ml OutputOutput Total 1200 ml 1050 ml BalanceBalance 0 ml -1050 ml Results/Medications Result Diagram: 07/10/18 0616 07/10/18 0616 Results 24 hrs Laboratory Tests Test 07/09/18 11:19 07/09/18 17:31 07/09/18 21:04 07/10/18 01:36 Bedside Glucose 271 H 202 298 H 284 H Test 07/10/18 06:16 07/10/18 07:42 White Blood Count 5.6 Red Blood Count 4.61 L Hemoglobin 12.7 L Hematocrit 39.4 L Mean Corpuscular 85.5 Volume Mean Corpuscular 27.5 L Hemoglobin Mean Corpuscular 32.2 Hemoglobin Concent Red Cell 12.5 Distribution Width Platelet Count 156 Mean Platelet Volume 10.4 Immature 0.400 Granulocytes % Neutrophils % 44.7 Lymphocytes % 41.8 Monocytes % 9.5 Eosinophils % 3.2 Basophils % 0.4 Nucleated Red Blood 0.0 Cells % Immature 0.020 Granulocytes # Neutrophils # 2.5 Lymphocytes # 2.3 Monocytes # 0.5 Eosinophils # 0.2 Basophils # 0.0 Nucleated Red Blood 0.0 Cells # Sodium Level 140 Potassium Level 4.5 Chloride Level 100 Carbon Dioxide Level 28 Anion Gap 12 Blood Urea Nitrogen 30 H Creatinine 0.95 Est Glomerular > 60 Filtrat Rate mL/min Glucose Level 261 H Calcium Level 9.2 Phosphorus Level 5.4 H Magnesium Level 1.8 Bedside Glucose 268 H Home Meds Reported Medications Fluticasone Propionate* (Fluticasone Propionate* Nasal) 50 Mcg/[place] - 16 Gm [place].susp, 1 SPRAY NASAL DAILY, #1 BOTTLE TO EACH NOSTRIL 07/08/18 Furosemide* (Furosemide*) 40 Mg Tablet, 40 MG PO DAILY, TAB 07/08/18 Lorazepam* (Lorazepam*) 0.5 Mg Tablet, 0.5 MG PO BID PRN for ANXIETY, TAB 07/08/18 Insulin Detemir (Levemir) 100 Unit/1 Ml Vial, 0 SQ WITH MEALS INJECT 8-12 UNITS 07/08/18 Spironolactone* (Aldactone*) 25 Mg Tablet, 12.5 MG PO DAILY, #30 TAB 07/08/18 Sacubitril/Valsartan (Entresto 24 mg-26 mg Tablet) 1 Each Tablet, 1 EACH PO DAILY, TAB 07/08/18 Rosuvastatin Calcium* (Crestor*) 5 Mg Tablet, 5 MG PO QHS, #30 TAB 07/08/18 Repaglinide* (Repaglinide*) 2 Mg Tablet, 4 MG PO AC MEALS, TAB 07/08/18 Paroxetine Hcl* (Paxil* CR) 25 Mg Tab.sr.24h, 25 MG PO QHS, TAB 07/08/18 Cyclone-3 Acid Ethyl Esters (Lovaza) 1 Gm Capsule, 2 GM PO BID, CAP 07/08/18 Insulin Degludec (Tresiba Flextouch U-200) 200 Unit/1 Ml Insuln.pen, 26 UNIT SQ QHS 07/08/18 Esomeprazole Mag Trihydrate (Nexium) 40 Mg Capsule.dr, 40 MG PO QAM, #30 CAP 07/08/18 Digoxin* (Lanoxin*) 0.125 Mg Tablet, 0.125 MG PO QHS, TAB 07/08/18 Clopidogrel Bisulfate* (Clopidogrel Bisulfate*) 75 Mg Tablet, 75 MG PO DAILY, #30 TAB 07/08/18 Carvedilol* (Carvedilol*) 12.5 Mg Tablet, 12.5 MG PO BID, #60 TAB 07/08/18 Allopurinol* (Allopurinol*) 100 Mg Tablet, 100 MG PO DAILY, TAB 07/08/18 Discontinued Reported Medications Salmeterol Xinaf/Fluticasone* (Advair*) 250-50 Diskus Inhaler, 1 INH INHALATION BID, #1 INHALER 08/14/17 Esomeprazole Mag Trihydrate (Nexium) 40 Mg Capsule.dr, 40 MG PO DAILY, #30 CAP 08/14/17 Rosuvastatin Calcium* (Crestor*) 5 Mg Tablet, 5 MG PO QHS, #30 TAB 08/14/17 Ivabradine HCl (Corlanor) 7.5 Mg Tablet, 7.5 MG PO BID, #60 TAB 08/14/17 Paroxetine Hcl* (Paxil* CR) 25 Mg Tab.sr.24h, 25 MG PO DAILY, TAB 08/14/17 Carvedilol* (Carvedilol*) 12.5 Mg Tablet, 12.5 MG PO BID, #60 TAB 08/14/17 Spironolactone* (Aldactone*) 25 Mg Tablet, 25 MG PO DAILY, #30 TAB 08/14/17 Allopurinol* (Allopurinol*) 100 Mg Tablet, 100 MG PO DAILY, TAB 08/14/17 Sacubitril/Valsartan (Entresto 24 mg-26 mg Tablet) 1 Each Tablet, 1 EACH PO BID, TAB 08/14/17 Repaglinide* (Repaglinide*) 2 Mg Tablet, 4 MG PO AC MEALS, TAB THREE TIMES DAILY 08/14/17 Digoxin* (Lanoxin*) 0.125 Mg Tablet, 0.125 MG PO QHS, TAB 08/14/17 Metformin Hcl* (Metformin Hcl*) 850 Mg Tablet, 850 MG PO WITH MEALS, #30 TAB THREE TIMES A DAY 08/14/17 Cyclone-3 Acid Ethyl Esters (Lovaza) 1 Gm Capsule, 2 GM PO BID, CAP 08/14/17 Clopidogrel Bisulfate (Clopidogrel) 75 Mg Tablet, 75 MG PO DAILY, #30 TAB 08/14/17 Aspirin (Low Dose Aspirin) 81 Mg Tablet.dr, 81 MG PO DAILY, #30 TAB 08/14/17 Exenatide Microspheres (Bydureon Pen) 2 Mg/0.65 Ml Pen.injctr, 2 MG SQ Q7D, EACH Mondays08/14/17 Insulin Aspart* (Novolog Insulin Pen*) 100 Unit/Ml Soln, 12 UNIT SC AC MEALS, EA 08/14/17 Insulin Degludec (Tresiba Flextouch U-200) 200 Unit/1 Ml Insuln.pen, 24 UNIT SQ QHS 08/14/17 Discontinued Scripts Levofloxacin* (Levaquin*) 500 Mg Tablet, 500 MG PO DAILY for 5 Days, TAB Prov:SARINA LONG MD 11/27/17 Medications Current Medications Allopurinol (Zyloprim) 100 mg DAILY PO Last administered on 07/09/18 09:09; Admin Dose 100 MG; Start 07/09/18 at 09:00 Carvedilol (Coreg) 12.5 mg BID PO Last administered on 07/09/18 21:06; Admin Dose 12.5 MG; Start 07/08/18 at 21:00 Clopidogrel Bisulfate (plaVIX) 75 mg DAILY PO Last administered on 07/09/18 09:08; Admin Dose 75 MG; Start 07/09/18 at 09:00 Digoxin (Digoxin) 0.125 mg DAILY@1300 PO Last administered on 07/09/18 12:38; Admin Dose 0.125 MG; Start 07/09/18 at 13:00 Fluticasone Propionate (Flonase 0.05% Nasal) 1 spray DAILY NASAL Last administered on 07/09/18 10:39; Admin Dose 1 SPRAY; Start 07/09/18 at 09:00 Furosemide (Lasix) 40 mg DAILY PO Last administered on 07/09/18 09:09; Admin Dose 40 MG; Start 07/09/18 at 09:00 Pantoprazole (Protonix Tab) 40 mg DAILY@06 PO Last administered on 07/10/18 06:21; Admin Dose 40 MG; Start 07/09/18 at 06:00 Fish Oil (Fish Oil) 1,000 mg BID PO Last administered on 07/09/18 21:06; Admin Dose 1,000 MG; Start 07/08/18 at 22:30 Atorvastatin Calcium (Lipitor) 20 mg DAILY@21 PO Last administered on 07/09/18at 21:06; Admin Dose 20 MG; Start 07/08/18 at 21:00 Zolpidem Tartrate (Ambien) 5 mg HS PRN PO INSOMNIA Last administered on 07/09/18at 00:13; Admin Dose 5 MG; Start 07/09/18 at 00:00 Insulin Aspart (Novolog Insulin Pen) NOVOLOG *MODERATE* ALGORITHM WITH MEALS BEDTIME SC Last administered on 07/10/18 07:54; Admin Dose 8 UNIT; Start 07/09/18 at 11:50 Insulin Glargine (Lantus) 16 units DAILY@0800 SC Last administered on 07/10/18 07:54; Admin Dose 16 UNITS; Start 07/09/18 at 10:30 Albuterol/ Ipratropium (Duoneb) 3 ml Q4H RESP THERAPY PRN HHN SHORTNESS OF BREATH; Start 07/09/18 at 09:30 Miscellaneous Information 1 ea NOTE XX ; Start 07/09/18 at 09:30 Glucose (Glutose) 15 gm Q15M PRN PO DECREASED GLUCOSE; Start 07/09/18 at 09:30 Glucose (Glutose) 22.5 gm Q15M PRN PO DECREASED GLUCOSE; Start 07/09/18 at 09:30 Dextrose (D50w Syringe) 25 ml Q15M PRN IV DECREASED GLUCOSE; Start 07/09/18 at 09:30 Dextrose (D50w Syringe) 50 ml Q15M PRN IV DECREASED GLUCOSE; Start 07/09/18 at 09:30 Glucagon (Glucagen) 1 mg Q15M PRN IM DECREASED GLUCOSE; Start 07/09/18 at 09:30 Glucose (Glutose) 15 gm Q15M PRN BUCCAL DECREASED GLUCOSE; Start 07/09/18 at 09:30 Diagnostic Test (Pha) (Accu-Chek) 1 ea 02 XX ; Start 07/10/18 at 02:00 Nystatin (Nystatin Susp) 5 ml QID PO Last administered on 07/09/18at 21:07; Admin Dose 5 ML; Start 07/09/18 at 13:00 Chlorhexidine Gluconate (Peridex) 15 ml Q12 MT Last administered on 07/09/18at 21:06; Admin Dose 15 ML; Start 07/09/18 at 21:00 Fluconazole (Diflucan) 100 mg DAILY PO Last administered on 07/09/18at 14:25; Admin Dose 100 MG; Start 07/09/18 at 13:00 Ivabradine (Corlanor) 5 mg BID WITH MEALS PO Last administered on 07/10/18at 07:50; Admin Dose 5 MG; Start 07/09/18 at 17:55 Enoxaparin Sodium (Lovenox) 40 mg DAILY SC Last administered on 07/09/18at 14:31; Admin Dose 40 MG; Start 07/09/18 at 13:23 Azithromycin (Zithromax) 500 mg DAILY PO ; Start 07/10/18 at 09:00 Magnesium Sulfate 50 ml @ 25 mls/hr ONCE ONCE IVPB ; Start 07/10/18 at 08:30; Stop 07/10/18 at 10:29 Sacubitril/ Valsartan (Entresto 24 Mg-26 Mg) 1 tab BID PO ; Start 07/10/18 at 09:30 Assessment/Plan Hospital Course (Demo Recall) 1. Dyspnea: Clinically does not appear to be in CHF exacerbation. Possibly COPD exacerbation versus viral syndrome versus others 2. Congestive heart failure: Chronic and stable second systolic heart failure 3. Coronary arteries with history of PCI 4. Diabetes 5. Dyslipidemia 6. Hypertension 7. COPD 8. Peripheral vascular disease status post carotid endarterectomy Recommendations Antibiotic management as needed will be deferred to internal medicine team Will continue patient home cardiac medications including Entresto and corlanor Electrolytes including: Magnesium will be replaced DC planning once okay from internal medicine standpoint. We will follow-up in the office Thank you for his referral. I will continue to follow along with you PEGGY TOTH MD [facility] PEGGY TOTH MD Jul 10, 2018 08:39
[2018-07-10] MEDS ORDERED: AZITHROMYCIN 250 MG TAB PO SCH (09:00)
[2018-07-10] MEDS ORDERED: SACUBITRIL/VALSARTAN (24mg-26mg) TABLET PO SCH (09:30)
--- NOTE | 2018-07-10 09:36 | PN ---
DATE: 07/10/2018 SUBJECTIVE: The patient is clinically improving, less shortness of breath today. No other events not ed. No hemoptysis, hematemesis or hematochezia. OBJECTIVE: VITAL SIGNS: Blood pressure is 123/61, respiration 18, pulse 78, temperature 98.0. HEENT: Head is normocephalic. NECK: Supple. HEART: Regular rate. LUNGS: Show diminished breath sounds at the base. ABDOMEN: Soft, nontender to palpation without rebound or guarding. EXTREMITIES: Negative for clubbing, cyanosis, no edema. DERMATOLOGIC: No rashes. MUSCULOSKELETAL: No joint effusion. NEUROLOGIC: No change in exam. MEDICATIONS: Reviewed. LABORATORY DATA: Has been reviewed. ASSESSMENT AND PLAN: 1. Acute bronchitis. Continue current antibiotic regimen. 2. Acute hypoxemic respiratory failure secondary to bronchitis, possible congestive heart failure ex acerbation. Improved. The patient is currently saturating 94% to 96% on room air. Continue current antibiotic regimen. Continue nebulizers. 3. Acute on chronic heart failure. The patient is clinically improving. Continue diuretic regimen. 4. History of coronary artery disease, status post percutaneous coronary intervention. Continue med ical management. 5. Diabetes. The patient's glucose levels were adjusted. Continue to monitor. 6. Hypertension. Continue current blood pressure regimen. 7. Dyslipidemia. Continue statin therapy. 8. History of ischemic cardiomyopathy, status post ICD placement. Continue to monitor. 9. History of carotid endarterectomy. Dictated By: ADAMARIS MONTES DE OCA/SHAI Conf#: [id number] DID#: [id number]
--- NOTE | 2018-07-10 12:55 | CONS ---
Assessment/Plan Assessment/Plan Hospital Course (Demo Recall) Patient is alert and feels better looks comfortable no fevers overnight WBCs today 5.6 no she does not balance BUN 30 creatinine 0.95 Antimicrobials: Zithromax, fluconazole oral nystatin PHYSICAL EXAMINATION: GENERAL: This is a well-developed, obese, very pleasant elderly man who is awake, alert, in no distress. HEENT: Head is atraumatic, normocephalic. Sclerae are anicteric. Buccal mu cosa is pink, pale. The patient has white thrush on his tongue. NECK: Supple. CHEST: Rise symmetrical. Breath sounds are clear. The patient has scattered inspiratory wheeze on the right lung base. HEART: S1, S2. ABDOMEN: Soft. Bowel tones are present. EXTREMITIES: Without cyanosis. Assessment: 1. Acute community-acquired bronchitis 2. Oral thrush 3. Acute on chronic heart failure 4. Diabetes 5. Coronary artery disease status post ICD Plan: Patient is doing better, okay to discharge on current antimicrobials. Continue oral nystatin and fluconazole for 7-10 days Consultation Date/Type/Reason Admit Date/Time Jul 08, 2018 at 18:48 Initial Consult Date 07/09/18 Type of Consult id Requesting Provider: ADAMARIS MEYER DO Date/Time of Note DATE: 07/10/18 TIME: 12:55 Exam/Review of Systems Exam Vitals Vital Signs Date Temp Pulse Resp B/P (MAP) Pulse Ox O2 O2 Flow FiO2 Time Delivery Rate 07/10/18 71 12:15 07/10/18 98.0 18 134/65 95 Room Air 11:23 (88) 07/10/18 2.0 07:30 07/08/18 21 15:56 Intake and Output 07/09/18 07/09/18 07/10/18 1515:00 23:00 07:00 IntakeIntake Total 1200 ml OutputOutput Total 1200 ml 1050 ml BalanceBalance 0 ml -1050 ml Results Result Diagram: 07/10/18 0616 07/10/18 0616 Results 24hrs Laboratory Tests Test 07/09/18 17:31 07/09/18 21:04 07/10/18 01:36 07/10/18 06:16 Bedside Glucose 202 298 H 284 H White Blood Count 5.6 Red Blood Count 4.61 L Hemoglobin 12.7 L Hematocrit 39.4 L Mean Corpuscular 85.5 Volume Mean Corpuscular 27.5 L Hemoglobin Mean Corpuscular 32.2 Hemoglobin Concent Red Cell 12.5 Distribution Width Platelet Count 156 Mean Platelet Volume 10.4 Immature 0.400 Granulocytes % Neutrophils % 44.7 Lymphocytes % 41.8 Monocytes % 9.5 Eosinophils % 3.2 Basophils % 0.4 Nucleated Red Blood 0.0 Cells % Immature 0.020 Granulocytes # Neutrophils # 2.5 Lymphocytes # 2.3 Monocytes # 0.5 Eosinophils # 0.2 Basophils # 0.0 Nucleated Red Blood 0.0 Cells # Sodium Level 140 Potassium Level 4.5 Chloride Level 100 Carbon Dioxide Level 28 Anion Gap 12 Blood Urea Nitrogen 30 H Creatinine 0.95 Est Glomerular > 60 Filtrat Rate mL/min Glucose Level 261 H Calcium Level 9.2 Phosphorus Level 5.4 H Magnesium Level 1.8 Test 07/10/18 07:42 07/10/18 11:36 Bedside Glucose 268 H 266 H Medications Medication Current Medications Allopurinol (Zyloprim) 100 mg DAILY PO Last administered on 07/10/18 08:19; Admin Dose 100 MG; Start 07/09/18 at 09:00 Carvedilol (Coreg) 12.5 mg BID PO Last administered on 07/10/18 08:20; Admin Dose 12.5 MG; Start 07/08/18 at 21:00 Clopidogrel Bisulfate (plaVIX) 75 mg DAILY PO Last administered on 07/10/18 08:19; Admin Dose 75 MG; Start 07/09/18 at 09:00 Digoxin (Digoxin) 0.125 mg DAILY@1300 PO Last administered on 07/09/18at 12:38; Admin Dose 0.125 MG; Start 07/09/18 at 13:00 Fluticasone Propionate (Flonase 0.05% Nasal) 1 spray DAILY NASAL Last administered on 07/10/18 08:21; Admin Dose 1 SPRAY; Start 07/09/18 at 09:00 Furosemide (Lasix) 40 mg DAILY PO Last administered on 07/10/18 08:20; Admin Dose 40 MG; Start 07/09/18 at 09:00 Pantoprazole (Protonix Tab) 40 mg DAILY@06 PO Last administered on 07/10/18 06:21; Admin Dose 40 MG; Start 07/09/18 at 06:00 Fish Oil (Fish Oil) 1,000 mg BID PO Last administered on 07/10/18 08:20; Admin Dose 1,000 MG; Start 07/08/18 at 22:30 Atorvastatin Calcium (Lipitor) 20 mg DAILY@21 PO Last administered on 07/09/18 21:06; Admin Dose 20 MG; Start 07/08/18 at 21:00 Zolpidem Tartrate (Ambien) 5 mg HS PRN PO INSOMNIA Last administered on 07/09/18 00:13; Admin Dose 5 MG; Start 07/09/18 at 00:00 Insulin Aspart (Novolog Insulin Pen) NOVOLOG *MODERATE* ALGORITHM WITH MEALS BEDTIME SC Last administered on 07/10/18 11:49; Admin Dose 8 UNIT; Start 07/09/18 at 11:50 Albuterol/ Ipratropium (Duoneb) 3 ml Q4H RESP THERAPY PRN HHN SHORTNESS OF BREATH; Start 07/09/18 at 09:30 Miscellaneous Information 1 ea NOTE XX ; Start 07/09/18 at 09:30 Glucose (Glutose) 15 gm Q15M PRN PO DECREASED GLUCOSE; Start 07/09/18 at 09:30 Glucose (Glutose) 22.5 gm Q15M PRN PO DECREASED GLUCOSE; Start 07/09/18 at 09:30 Dextrose (D50w Syringe) 25 ml Q15M PRN IV DECREASED GLUCOSE; Start 07/09/18 at 09:30 Dextrose (D50w Syringe) 50 ml Q15M PRN IV DECREASED GLUCOSE; Start 07/09/18 at 09:30 Glucagon (Glucagen) 1 mg Q15M PRN IM DECREASED GLUCOSE; Start 07/09/18 at 09:30 Glucose (Glutose) 15 gm Q15M PRN BUCCAL DECREASED GLUCOSE; Start 07/09/18 at 09:30 Diagnostic Test (Pha) (Accu-Chek) 1 ea 02 XX ; Start 07/10/18 at 02:00 Nystatin (Nystatin Susp) 5 ml QID PO Last administered on 07/10/18 08:19; Admin Dose 5 ML; Start 07/09/18 at 13:00 Chlorhexidine Gluconate (Peridex) 15 ml Q12 MT Last administered on 07/10/18at 08:19; Admin Dose 15 ML; Start 07/09/18 at 21:00 Fluconazole (Diflucan) 100 mg DAILY PO Last administered on 07/10/18at 08:20; Admin Dose 100 MG; Start 07/09/18 at 13:00 Ivabradine (Corlanor) 5 mg BID WITH MEALS PO Last administered on 07/10/18at 07:50; Admin Dose 5 MG; Start 07/09/18 at 17:55 Enoxaparin Sodium (Lovenox) 40 mg DAILY SC Last administered on 07/10/18at 08:27; Admin Dose 40 MG; Start 07/09/18 at 13:23 Azithromycin (Zithromax) 500 mg DAILY PO Last administered on 07/10/18at 08:19; Admin Dose 500 MG; Start 07/10/18 at 09:00 Sacubitril/ Valsartan (Entresto 24 Mg-26 Mg) 1 tab BID PO Last administered on 07/10/18at 11:14; Admin Dose 1 TAB; Start 07/10/18 at 09:30 Insulin Glargine (Lantus) 20 units DAILY@0800 SC ; Start 07/11/18 at 08:00 EDSON PEREZ NP Jul 10, 2018 12:55
[2018-07-11] MEDS ORDERED: INSULIN GLARGINE [LANTus] (100 UNITS/ML) SYG SC SCH (08:00)
== END 2018-07-10 13:15 | disposition home or self-care (01) ==
LOC: E/R 11:34 → TEL 18:48
PROVIDERS: ADMIT Internal Medicine; ATTEND Internal Medicine
DX: J20.9 Acute bronchitis, unspecified (principal); B37.0 Candidal stomatitis; I11.0 Hypertensive heart disease with heart failure; I50.9 Heart failure, unspecified; I25.10 Atherosclerotic heart disease of native coronary artery without angina pectoris; J44.9 Chronic obstructive pulmonary disease, unspecified; E11.9 Type 2 diabetes mellitus without complications; E78.5 Hyperlipidemia, unspecified; Z79.4 Long term (current) use of insulin; Z95.810 Presence of automatic (implantable) cardiac defibrillator
CPT/HCPCS: 36415; 71045; 80048; 80053; 81001; 81003; 82043; 82962; 83605; 83735; 83880; 84100; 84155; 84300; 84484; 85025; 85610; 85730; 93005; 99285; G0378; J0456; J1650; J1815; J1940; J3475